=== PATIENT | male | born 1985 | race Caucasian/White ===

== ENCOUNTER 2018-02-27 22:29 | Emergency (ER) | payer OTHER ==
[~2018-02-27] VITALS: Ht 180.3 cm; Wt 81.0 kg
[2018-02-27] MEDS ORDERED: ONDANSETRON HCL 4MG/2ML VIAL IV STA (23:59)
[2018-02-27] MEDS ORDERED: SODIUM CHLORIDE 0.9% 1,000 ML IV ONE (23:59)
[2018-02-28] MEDS ORDERED: NALOXONE HCL 1 MG/ML 2ML VIAL IV ONE
[2018-02-28] MEDS ORDERED: NALOXONE HCL 1 MG/ML 2ML VIAL IM ONE
[2018-02-28] MEDS ORDERED: NALOXONE HCL 1 MG/ML 2ML VIAL ONE ×2 (00:02→00:08)
[2018-02-28 00:46] LABS: BASOPHILS % 0.5 % (0.0-2.0); EOSINOPHILS % 1.4 % (0.0-5.0); HEMATOCRIT. 38.4 % (42.0-52.0); HEMOGLOBIN. 13.3 g/dL (14.0-18.0); LYMPHOCYTES % 13.4 % (20.0-50.0); MEAN CORPUSCULAR HEMOGLOBIN 30.2 pg (28.0-32.0); MEAN PLATELET VOLUME 8.5 fl (7.4-10.4); MONOCYTES % 7.1 % (2.0-8.0); NEUTROPHILS % 77.6 % (40.0-76.0); PLATELET 191 x1000/uL (130-400); RED BLOOD CELL COUNT 4.41 mill/uL (4.7-6.1); RED CELL DISTRIBUTION WIDTH 14.7 % (11.6-14.6)
[2018-02-28 01:11] LABS: CHLORIDE 108 mEq/L (98-107)
[2018-02-28 04:02] VITALS: BP 122/65
== END 2018-02-28 04:05 | disposition home or self-care (01) ==
LOC: ER 22:59
DX: T40.1X1A Poisoning by heroin, accidental (unintentional), initial encounter (principal); G93.40 Encephalopathy, unspecified; F11.10 Opioid abuse, uncomplicated; Y92.89 Other specified places as the place of occurrence of the external cause
CPT/HCPCS: 36415; 71045; 80053; 85025; 93005; 96361; 96372; 96374; 96375; 99291; J2310; J2405; J7030; Z7610